=== PATIENT | female | born 1995 | race Caucasian/White ===

== ENCOUNTER 2016-11-02 17:29 | Emergency (ER) | payer OTHER ==
[~2016-11-02] VITALS: Ht 160 cm; Wt 61.4 kg
[2016-11-02] MEDS ORDERED: DOXYCYCLINE MO100 MG PO (19:19)
[2016-11-02 19:32] VITALS: BP 125/77
[2016-11-03] MEDS ORDERED: ULTRAM50 MG PO (13:22)
== END 2016-11-02 19:32 | disposition home or self-care (01) ==
LOC: EME 17:29
PROC: 0H91XZZ Drainage of Face Skin, External Approach (ICD-10-PCS; principal; 2016-11-02)
DX: L02.01 Cutaneous abscess of face (principal); Z88.0 Allergy status to penicillin
CPT/HCPCS: 99281; 99283

== ENCOUNTER 2016-11-03 12:57 | Emergency (ER) | payer OTHER ==
[~2016-11-03] VITALS: Ht 160 cm; Wt 60.8 kg
[~2016-11-03 12:57] MED LIST: DOXYCYCLINE MO100 MG PO
[2016-11-03] MEDS ORDERED: ULTRAM50 MG PO (13:22)
[2016-11-03 14:40] VITALS: BP 125/91
== END 2016-11-03 14:46 | disposition home or self-care (01) ==
LOC: EME 12:57
PROC: 0H91XZZ Drainage of Face Skin, External Approach (ICD-10-PCS; principal; 2016-11-03)
DX: L02.01 Cutaneous abscess of face (principal); Z88.0 Allergy status to penicillin; F17.200 Nicotine dependence, unspecified, uncomplicated
CPT/HCPCS: 87070; 87075; 87205; 99281; 99284